=== PATIENT | male | born 1970 | race Caucasian/White ===

== ENCOUNTER → 2018-02-12 | Outpatient (CLI) | payer BC ==
[2018-02-12 16:34] LABS: BASO % 0.3 %; BASO ABS # 0.03 K/uL (0-0.2); EOS % 1.8 %; EOS ABS # 0.18 K/uL (0-0.5); HEMATOCRIT 45.8 % (42-52); IG# 0.02 K/uL (0.00-0.02); LYMPH % 19.7 %; LYMPH ABS # 1.96 K/uL (1.2-3.4); MEAN CELL VOLUME 86.3 fL (80-100); MEAN CORPUSCULAR HEMOGLOBIN 30.1 pg (25-34); MEAN CORPUSCULAR HGB CONC 34.9 g/dl (32-36); MEAN PLATELET VOLUME 11.3 fL (7.4-10.4); MONO % 7.6 %; MONO ABS # 0.76 K/uL (0.11-0.59); NEUT % 70.4 %; NEUT ABS # 6.99 K/uL (1.4-6.5); PLATELET COUNT 227 K/uL (130-400); RED CELL DISTRIBUTION WIDTH CV 12.7 % (11.5-14.5); RED CELL DISTRIBUTION WIDTH SD 40.2 fL (36.4-46.3); WHITE BLOOD COUNT 9.94 K/uL (4.8-10.8)
[2018-02-12 16:48] LABS: ALBUMIN 4.2 gm/dl (3.4-5.0); ALT/SGPT 45 U/L (12-78); AST/SGOT 25 U/L (15-37); BLOOD UREA NITROGEN 18 mg/dl (7-18); CALCIUM 9.4 mg/dl (8.5-10.1); CARBON DIOXIDE 29 mmol/L (21-32); CHOLESTEROL 236 mg/dl (0-200); CREATININE 1.15 mg/dl (0.60-1.40); GLUCOSE 100 mg/dl (70-99); POTASSIUM 4.5 mmol/L (3.5-5.1); SODIUM 134 mmol/L (136-145)
[2018-02-12 16:55] LABS: ALKALINE PHOSPHATASE 87 U/L (45-117); LDL CHOLESTEROL CALCULATED 174 mg/dl; TOTAL PROTEIN 8.4 gm/dl (6.4-8.2)
== END | disposition home or self-care (01) ==
LOC: C.LABBFT 14:43
PROVIDERS: ATTEND Physician Assistant Medical
DX: I10 Essential (primary) hypertension (principal)

== ENCOUNTER → 2018-02-20 | Outpatient (CLI) | payer BC ==
[2018-02-20 16:36] LABS: ALBUMIN 4.2 gm/dl (3.4-5.0); ALT/SGPT 45 U/L (12-78); BLOOD UREA NITROGEN 19 mg/dl (7-18); CALCIUM 9.9 mg/dl (8.5-10.1); CARBON DIOXIDE 25 mmol/L (21-32); CREATININE 1.22 mg/dl (0.60-1.40); GLUCOSE 91 mg/dl (70-99); POTASSIUM 4.4 mmol/L (3.5-5.1); SODIUM 138 mmol/L (136-145)
[2018-02-20 16:39] LABS: ALKALINE PHOSPHATASE 83 U/L (45-117); AST/SGOT 24 U/L (15-37)
[2018-02-21 07:41] LABS: HEMOGLOBIN A1C 6.3 % (4.5-5.6)
== END | disposition home or self-care (01) ==
LOC: C.LABBFT 11:36
PROVIDERS: ATTEND Internal Medicine
DX: I10 Essential (primary) hypertension (principal)

== ENCOUNTER 2024-05-20 15:48 | Inpatient (IN) ==
[2024-05-20 16:54] LABS: Basophils # (auto) 0.06 K/uL (0.00-0.20); Basophils % (auto) 0.6 %; Eosinophils # (auto) 0.25 K/uL (0.00-0.50); Eosinophils % (auto) 2.5 %; Hematocrit (blood only) 36.6 % (42.0-52.0); Hemoglobin 11.9 g/dl (14.0-18.0); Immature Granulocytes # (auto) 0.03 K/uL (0.01-0.20); Immature Granulocytes % (auto) 0.3 %; Lymphocytes # (auto) 2.69 K/uL (1.20-3.40); Lymphocytes % (auto) 27.1 %; Mean Corpuscular Hemoglobin 28.8 pg (25.0-34.0); Mean Corpuscular Hgb Conc 32.5 g/dL (32.0-36.0); Mean Corpuscular Volume 88.6 fL (80.0-100.0); Mean Platelet Volume 10.9 fL (9.4-12.4); Monocytes # (auto) 0.76 K/uL (0.11-0.59); Monocytes % (auto) 7.7 %; Neutrophils # (auto) 6.13 K/uL (1.40-6.50); Neutrophils % (auto) 61.8 %; Platelet Count 232 K/uL (130-400); RDW Coefficient of Variation 12.6 % (11.5-14.5); RDW Standard Deviation 40.6 fL (36.4-46.3); Red Blood Count 4.13 M/uL (4.70-6.10); White Blood Count 9.92 K/ul (4.8-10.8)
[2024-05-20 17:10] LABS: Alanine Aminotransferase 20 U/L (7-52); Albumin Globulin Ratio 1.6 (0.9-2); Albumin Level 4.7 gm/dl (3.4-5.0); Alkaline Phosphatase 70 U/L (34-104); Anion Gap 9 (3-11); Aspartate Aminotransferase 16 U/L (13-39); BUN Creatinine Ratio 20.5 (10-20); Bilirubin,Total 0.8 mg/dl (0.2-1.0); Blood Urea Nitrogen 59 mg/dl (6-23); Carbon Dioxide 22 mmol/L (21-32); Chloride 109 mmol/L (98-107); Creatinine Clr Calc Pharmacy 37.8 ml/min; Est GFR (African American) 27.2 ml/min; Est GFR (Non-African American) 23.5 ml/min; Globulin 2.9 gm/dl (2.5-4.0); Glucose 91 mg/dl (70-99(Fasting)); Potassium 5.7 mmol/L (3.5-5.1); Sodium 140 mmol/L (136-145); Total Protein 7.6 gm/dl (6.0-8.3)
[2024-05-20 17:22] LABS: Partial Thromboplastin Time 26 Seconds (21-31); Prothrombin Time 10.9 Seconds (9.0-12.0)
--- NOTE | 2024-05-20 17:28 | XRay Report ---
XR chest 1V not portable HISTORY: Abnormal laboratory values. COMPARISON: None. FINDINGS: The lungs are clear. Cardiac silhouette is normal in size. No pleural effusions. No pneumot horax. IMPRESSION: No acute process. ACT 112: Negative or not required by law. Electronically signed by: Rogelio Hoang M.D. 05/20/2024 5:27 PM
[2024-05-20 17:29] LABS: Troponin I High Sensitivity < 2.3 pg/ml (0-20)
[2024-05-20] MEDS: LACTATED RINGER'S 1,000 ML IV STA (18:03)
[2024-05-20 18:17] LABS: Appearance Urine Clear (Clear); Bilirubin Urine Negative (Negative); Blood Urine Negative (Negative); Color Urine Yellow; Glucose Urine UA Negative (Negative); Ketones Urine Trace (Negative); Leukocyte Esterase Urine Negative (Negative); Nitrite Urine Negative (Negative); Protein Urine Negative (Negative); Specific Gravity Urine 1.021 (1.000-1.030); Urobilinogen Urine Negative (Negative)
--- NOTE | 2024-05-20 18:35 | CT Scan Report ---
ABDOMEN AND PELVIS CT WITHOUT CONTRAST CT DOSE: 1548.51 mGy.cm HISTORY: acute renal failure TECHNIQUE: Multiaxial CT images of the abdomen and pelvis were performed without contrast. A dose lo wering technique was utilized adhering to the principles of ALARA. COMPARISON STUDY: None. FINDINGS: There is a 3 mm nodule within the right lower lobe on image 16. There is a punctate calcifi ed granuloma within the right middle lobe. No pneumoperitoneum. No pneumatosis. No acute fractures. T he unenhanced liver, gallbladder, pancreas, spleen, and adrenal glands are unremarkable. A few promin ent periportal lymph nodes measuring up to 17 mm. Normal caliber abdominal aorta. No pelvic lymphaden opathy or pelvic free fluid. A few bilateral renal hypodense lesions with the largest in the left fransisca suring 3.9 cm. These are incompletely characterized on this noncontrast study but statistically repre sent cysts. There is a 3 mm stone within the left kidney. No right renal calculi. No ureteral calculi . No hydronephrosis. Normal bladder. Suboptimal evaluation for bowel pathology due to the lack of int ravenous and oral contrast. However, there is no definite bowel wall thickening or obstruction. Irina l appendix. A few sigmoid diverticula. No evidence for acute diverticulitis. Minimal bilateral perine phric edema. This is likely chronic. IMPRESSION: 1. No bowel wall thickening or obstruction. 2. Normal appendix. 3. Left-sided nephrolithiasis. No ureteral stones. No hydronephrosis. 4. A few prominent periportal lymph nodes. These are of uncertain clinical significance. 5. A 3 mm indeterminate pulmonary nodule within the right lower lobe. Please refer to below summary of Fleischner criteria recommendations for follow-up of incidental CT n odules (Ashley Isaac, Guidelines for management of small pulmonary nodules detected on CT scans: A sta tement from the Fleischner Society, Radiology 237: [phone].) SOLID NODULES Solitary nodule size: <6 mm * Low risk patients: no follow-up needed * high risk patients: optional CT at 12 months Solitary nodule size: 6-8 mm * Low risk patients: follow-up at 6-12 months, then consider further follow-up at 18-24 months * high risk patients: initial follow-up CT at 6-12 months and then at 18-24 months if no change Solitary nodule size: >8 mm * either low or high risk patients - consider follow-up CT at 3 months, and/or CT-PET, and/or biopsy Multiple nodules size: <6 mm * Low risk patients: no routine follow-up * high risk patients: optional CT at 12 months Multiple nodules size: 6-8 mm * Low risk patients: follow-up at 3-6 months, then consider further follow-up at 18-24 months * high risk patients: follow-up at 3-6 months, then at 18-24 months if no change Multiple nodules size: >8 mm * Low risk patients: follow-up at 3-6 months, then consider further follow-up at 18-24 months * high risk patients: follow-up at 3-6 months, then at 18-24 months if no change Note: newly detected indeterminate nodule in persons 35 years of age or older. * Low risk patients: minimal or absent history of smoking and/or other known risk factors * high risk patients: history of smoking or of other known risk factors (e.g. first degree relative with lung cancer, or exposure to asbestos, radon, uranium) * if a nodule up to 8 mm is partly solid or is ground glass further follow-up is required after 24 m onths to exclude possible slow growing adenocarcinoma (EDEN) SUBSOLID NODULES Solitary pure ground-glass nodule * nodule size <6 mm - no CT follow-up required * nodule size >=6 mm - follow-up CT at 6-12 months, then every 2 years until 5 years Solitary part-solid nodule * nodule size <6 mm - no CT follow-up required * nodule size >=6 mm - follow-up CT at 3-6 months. If unchanged, and solid component remains <6 mm, then annual follow-up for 5 years Multiple subsolid nodules * nodule size <6 mm - follow-up CT at 3-6 months, consider further follow-up at 2 and 4 years if sta ble * nodule size >=6 mm - follow-up CT at 3-6 months, subsequent management based on the most suspiciou s nodule(s) ACT 112: Negative or not required by law. Electronically signed by: Rogelio Hoang M.D. 05/20/2024 6:33 PM
--- NOTE | 2024-05-20 18:52 | Emergency Department Note ---
Impression & Plan Acute renal failure, Hyperkalemia, Type 2 diabetes mellitus with peripheral neuropathy ED Provider Note NAME: JAVON PAGE AGE: 54 SEX: M : 1970 ARRIVES VIA: Walk-In INFORMANT: Patient ED PROVIDER(S): Yefri Kumari MD CHIEF COMPLAINT: abnormal labs, referred. PLAN: Disposition: Admit MEDICAL DECISION MAKING: The patient is a 54-year-old gentleman with a past medical history of hypertension, hyperlipidemia, type 2 diabetes who presents to the emergency department via walk-in accompanied by his , referred by his primary care doctor for evaluation of outpatient blood work yesterday which demonstrated acute renal failure with creatinine of 3.7 and potassium of 5.8. He reports he was surprised because he denies having any symptoms and has felt in his normal state of health. Patient admits that he has lost 30-40 pounds since starting on Ozempic but admits he may not be hydrating sufficiently particularly given he is outside frequently. He denies cough, congestion, chest pain, shortness of breath, GI or symptoms. Of note, the patient did arrive to emergency department during time of high volume, acuity and prolonged emergency department waiting times. Critical pathways initiated from triage. EKG without overt acute ischemia. CXR negative for acute cardiopulmonary process per my personal preliminary review/interpretation. WBC and platelets within normal limits. H/H 11.9/36.6, decreased from February of this year nonspecific. Chemistry without metabolic acidosis. Creatinine is improved from yesterday's outpatient test at 2.8 improved from 3.7. Potassium is 5.7. No EKG changes. LFTs unremarkable. High-sensitivity troponin is undetectable. UA without evidence of infection. CT abdomen pelvis without contrast was performed and was negative for acute abnormalities. Note is made of a few prominent periportal lymph nodes which are of unknown certain clinical significance. A 3 mm indeterminate pulmonary nodule is described in the right lower lobe. Treatment initiated with IV fluid hydration with lactated ringer's given chloride of 109 and sodium 140. Findings reviewed the patient with patient. While initially resistant to being admitted ultimately did agree with plan for admission for further evaluation. Case was discussed with Zay Persaud, [facility], with Dr. Bustos, [facility] hospitalist who will evaluate the patient for admission. Further management per admitting team. Triage Nursing notes reviewed and agree them. Prior/external medical records reviewed Vital Signs: reviewed Differential diagnosis: Infection, dehydration, metabolic abnormality, hypo/hyperglycemia, electrolyte disturbance, anemia, hypoxia, cardiac sources, intracerebral event, toxicologic, neurologic, as well as other pathologies. ER treatment provided: See below. Diagnostics interpreted by me: ECG: Normal sinus rhythm, 74 bpm, no ectopy, no overt ST elevation or depression, no hyperacute T waves, QTc 364, QRS 82. Cardiac Monitoring: An order for continuous cardiac monitoring was placed and demonstrated Normal sinus rhythm, 74 bpm, no ectopy. Laboratory studies: See below Imaging studies: See below Consultation(s): Zay Persaud, [facility], with Dr. Bustos, [facility] hospitalist HPI: The patient is a 54-year-old gentleman with a past medical history of hypertension, hyperlipidemia, type 2 diabetes who presents to the emergency department via walk-in accompanied by his , referred by his primary care doctor for evaluation of outpatient blood work yesterday which demonstrated acute renal failure with creatinine of 3.7 and potassium of 5.8. He reports he was surprised because he denies having any symptoms and has felt in his normal state of health. Patient admits that he has lost 30-40 pounds since starting on Ozempic but admits he may not be hydrating sufficiently particularly given he is outside frequently. He denies cough, congestion, chest pain, shortness of breath, GI or symptoms. ROS: See above HPI for pertinent positives & negatives. A total of 10 systems reviewed and were otherwise negative. VITALS:See Below PHYSICAL EXAMINATION: GENERAL: Awake, alert, in no distress, BMI 35.9. HENT: Normocephalic, atraumatic. Oropharynx with dry mucous membranes and otherwise unremarkable. EYES: Normal conjunctiva. Sclera non-icteric. NECK: Supple. No nuchal rigidity. FROM. No JVD. RESPIRATORY: Clear to auscultation. CARDIAC: Regular rate, normal rhythm. Extremities warm and well perfused. Pulses equal. ABDOMEN: Soft, non-distended. No tenderness to palpation. No rebound or guarding. No masses. MUSCULOSKELETAL: Chest examination reveals no tenderness. The back is symmetrical on inspection without obvious abnormality. There is no CVA tenderness to palpation. No joint edema. LOWER EXTREMITIES: Calves are equal size bilaterally and non-tender. No edema. No discoloration. NEURO: Normal sensorium. No sensory or motor deficits noted. SKIN: No rash or jaundice noted. Yefri Kumari MD Past Med/Surg History Problem List (Updated 05/21/24 @ 01:33 by Yefri Kumari MD) Hyperkalemia (Acute) Acute renal failure (Acute) Type 2 diabetes mellitus with peripheral neuropathy (Acute) Dyslipidemia (Chronic) Hypertension (Chronic) Encounter for pre-operative examination Anemia Medical History Hypertension Hyperlipidemia Impaired fasting glucose Surgical History No history of previous surgery Family History Family/Other Coronary heart disease Aunt Diabetes Other No family history of adverse response to anesthesia Denies family history of Ovarian cancer Prostate cancer Breast cancer Colorectal cancer Social History Smoking Status: Never smoker Second Hand Exposure: No; Do You Dip or Chew Tobacco: No; Hx Alcohol Use: Yes Alcohol type: hard liquor Hx Substance Use: No Preferred Language: Bangladeshi Communication Ability: Effective Cuff Slitter Required: No Beliefs That Will Affect Care: None marital status: Current Living Situation: Spouse current occupational status: employed Other Information That Helps Us Care for You: No Feels Safe at Home: Yes Safety Concerns: Feels Safe At This Time Diet: regular caffeine: Yes Dental Care, Regularly: No Physical Activity Frequency: Other Physical Activity Frequency Comment: Work Seatbelt Use: sometimes Sunscreen Use: No Assistive Devices: None Allergies Allergies Allergy/AdvReac Type Severity Reaction Status Date / Time No Known Allergies Allergy Verified 07/21/23 09:58 Home Meds Home Medications Medication Instructions Recorded Confirmed famotidine 10 mg/mL intravenous mg HS PRN Abdominal Discomfort 05/20/24 solution Previous Rx's Medication Instructions Recorded blood sugar diagnostic (Silent PowerTouch #50 ea 01/26/20 Verio test strips) blood-glucose meter (Silent PowerTouch #1 ea 01/26/20 Verio Meter) lancets 30 gauge (Silent PowerTouch Delica #50 ea 01/26/20 Lancets) lisinopril 20 mg tablet 20 mg PO DAILY #90 tabs 05/12/23 atorvastatin 20 mg tablet 20 mg PO HS #90 tabs 06/06/23 metformin 500 mg tablet,extended 1,000 mg (2 x 500 mg) PO BID #360 03/16/24 release 24 hr tabs semaglutide 1 mg/dose (4 mg/3 mL) 1 mg (0.75 mL) subcut Q7D #3 mL 05/03/24 subcutaneous pen injector (Ozempic) Results & Data (ED) Vital Signs Vital Signs - 24 hr 05/20/24 15:56 05/20/24 17:54 05/20/24 18:08 Temperature 36.6 C Temperature Source Skin Pulse Rate 85 72 Pulse Rate [Apical] 73 Respiratory Rate 18 18 Respiratory Effort / Characteristics Non-Labored Spontaneous Respiratory Depth Normal Respiratory Pattern Blood Pressure 129/84 Blood Pressure [Right Arm] 121/84 Blood Pressure Mean 99 Blood Pressure Mean [Right Arm] 96 Blood Pressure Position [Right Arm] Lying Pulse Oximetry 98 99 Oxygen Delivery Method Room Air Room Air Sepsis Recent Fever Within 48 Hours No Sepsis New/Unexplained Change in Mental Status No Sepsis Action Taken by Nursing No Action Required 05/20/24 19:00 Temperature Temperature Source Pulse Rate Pulse Rate [Apical] 69 Respiratory Rate 16 Respiratory Effort / Characteristics Non-Labored Spontaneous Respiratory Depth Normal Respiratory Pattern Regular Blood Pressure Blood Pressure [Right Arm] 113/82 Blood Pressure Mean Blood Pressure Mean [Right Arm] 92 Blood Pressure Position [Right Arm] Pulse Oximetry 99 Oxygen Delivery Method Room Air Sepsis Recent Fever Within 48 Hours Sepsis New/Unexplained Change in Mental Status Sepsis Action Taken by Nursing Laboratory Data Attestation: I reviewed the patient's lab results. 05/20/24 16:26 05/20/24 20:03 Lab Results 05/20/24 05/20/24 Range/Units 16:26 17:41 WBC 9.92 (4.8-10.8) K/ul RBC 4.13 L (4.70-6.10) M/uL Hgb 11.9 L (14.0-18.0) g/dl Hct 36.6 L (42.0-52.0) % MCV 88.6 (80.0-100.0) fL MCH 28.8 (25.0-34.0) pg MCHC 32.5 (32.0-36.0) g/dL RDW Std Deviation 40.6 (36.4-46.3) fL RDW Coeff of Mabel 12.6 (11.5-14.5) % Plt Count 232 (130-400) K/uL MPV 10.9 (9.4-12.4) fL Immature Gran % (Auto) 0.3 % Neut % (Auto) 61.8 % Lymph % (Auto) 27.1 % Garland % (Auto) 7.7 % Eos % (Auto) 2.5 % Baso % (Auto) 0.6 % Neut # (Auto) 6.13 (1.40-6.50) K/uL Lymph # (Auto) 2.69 (1.20-3.40) K/uL Garland # (Auto) 0.76 H (0.11-0.59) K/uL Eos # (Auto) 0.25 (0.00-0.50) K/uL Baso # (Auto) 0.06 (0.00-0.20) K/uL Immature Gran # (Auto) 0.03 (0.01-0.20) K/uL PT 10.9 (9.0-12.0) Seconds INR 1.0 (0.9-1.1) APTT 26 (21-31) Seconds PTT Ratio 1.0 Sodium 140 (136-145) mmol/L Potassium 5.7 H (3.5-5.1) mmol/L Chloride 109 H (98-107) mmol/L Carbon Dioxide 22 (21-32) mmol/L Anion Gap 9 (3-11) BUN 59 H (6-23) mg/dl Creatinine 2.88 H D (0.6-1.4) mg/dl Est Cr Clr Drug Dosing 37.8 ml/min Est GFR ( Amer) 27.2 ml/min Est GFR (Non-Af Amer) 23.5 ml/min BUN/Creatinine Ratio 20.5 H (10-20) Glucose 91 (70-99(Fasting)) mg/dl Calcium 10.0 (8.6-10.3) mg/dl Total Bilirubin 0.8 (0.2-1.0) mg/dl AST 16 (13-39) U/L ALT 20 (7-52) U/L Alkaline Phosphatase 70 (34-104) U/L Troponin I High Sens < 2.3 (0-20) pg/ml Total Protein 7.6 (6.0-8.3) gm/dl Albumin 4.7 (3.4-5.0) gm/dl Globulin 2.9 (2.5-4.0) gm/dl Albumin/Globulin Ratio 1.6 (0.9-2) Urine Color Yellow Urine Appearance Clear (Clear) Urine pH 5.0 (4.5-7.5) Ur Specific [place] 1.021 (1.000-1.030) Urine Protein Negative (Negative) Urine Glucose (UA) Negative (Negative) Urine Ketones Trace H (Negative) Urine Blood Negative (Negative) Urine Nitrite Negative (Negative) Urine Bilirubin Negative (Negative) Urine Urobilinogen Negative (Negative) Ur Leukocyte Esterase Negative (Negative) Administered Medications Lactated Ringer's (Lr) 1,000 mls @ 125 mls/hr IV .Q8H STA Stop: 05/21/24 01:42 Last Admin: 05/20/24 18:03 Dose: 125 mls/hr Documented By: CC Insulin Aspart (Insulin Aspart Per Unit Charge) 0 units SC ACHS FLY Stop: 06/19/24 20:59 Last Admin: 05/20/24 21:35 Dose: Not Given Documented By: LKD Discontinued Medications Lactated Ringer's (Lr) 1,000 mls @ 999 mls/hr IV .Q1H1M ONE Stop: 05/21/24 00:25 Last Infusion: 05/21/24 00:42 Dose: Infused Documented By: Admin: 05/20/24 23:41 Dose: 999 mls/hr Documented By: MISHEL Imaging Data Radiologist's Impression: Chest X-Ray 05/20/24 15:59 XR chest 1V not portable HISTORY: Abnormal laboratory values. COMPARISON: None. FINDINGS: The lungs are clear. Cardiac silhouette is normal in size. No pleural effusions. No pneumothorax. IMPRESSION: No acute process. ACT 112: Negative or not required by law. Electronically signed by: Rogelio Hoang M.D. 05/20/2024 5:27 PM Abdomen/Pelvis CT 05/20/24 16:[address] WITHOUT CONTRAST CT DOSE: 1548.51 mGy.cm HISTORY: acute renal failure TECHNIQUE: Multiaxial CT images of the abdomen and pelvis were performed without contrast. A dose lowering technique was utilized adhering to the principles of ALARA. COMPARISON STUDY: None. FINDINGS: There is a 3 mm nodule within the right lower lobe on image 16. There is a punctate calcified granuloma within the right middle lobe. No pneumoperitoneum. No pneumatosis. No acute fractures. The unenhanced liver, gallbladder, pancreas, spleen, and adrenal glands are unremarkable. A few prominent periportal lymph nodes measuring up to 17 mm. Normal caliber abdominal aorta. No pelvic lymphadenopathy or pelvic free fluid. A few bilateral renal hypodense lesions with the largest in the left measuring 3.9 cm. These are incompletely characterized on this noncontrast study but statistically represent cysts. There is a 3 mm stone within the left kidney. No right renal calculi. No ureteral calculi. No hydronephrosis. Normal bladder. Suboptimal evaluation for bowel pathology due to the lack of intravenous and oral contrast. However, there is no definite bowel wall thickening or obstruction. Normal appendix. A few sigmoid diverticula. No evidence for acute diverticulitis. Minimal bilateral perinephric edema. This is likely chronic. IMPRESSION: 1. No bowel wall thickening or obstruction. 2. Normal appendix. 3. Left-sided nephrolithiasis. No ureteral stones. No hydronephrosis. 4. A few prominent periportal lymph nodes. These are of uncertain clinical significance. 5. A 3 mm indeterminate pulmonary nodule within the right lower lobe. Please refer to below summary of Fleischner criteria recommendations for follow- up of incidental CT nodules (Ashley Isaac, Guidelines for management of small pulmonary nodules detected on CT scans: A statement from the Fleischner Society, Radiology 237: [phone].) SOLID NODULES Solitary nodule size: <6 mm * Low risk patients: no follow-up needed * high risk patients: optional CT at 12 months Solitary nodule size: 6-8 mm * Low risk patients: follow-up at 6-12 months, then consider further follow-up at 18-24 months * high risk patients: initial follow-up CT at 6-12 months and then at 18-24 months if no change Solitary nodule size: >8 mm * either low or high risk patients - consider follow-up CT at 3 months, and/or CT-PET, and/or biopsy Multiple nodules size: <6 mm * Low risk patients: no routine follow-up * high risk patients: optional CT at 12 months Multiple nodules size: 6-8 mm * Low risk patients: follow-up at 3-6 months, then consider further follow-up at 18-24 months * high risk patients: follow-up at 3-6 months, then at 18-24 months if no change Multiple nodules size: >8 mm * Low risk patients: follow-up at 3-6 months, then consider further follow-up at 18-24 months * high risk patients: follow-up at 3-6 months, then at 18-24 months if no change Note: newly detected indeterminate nodule in persons 35 years of age or older. * Low risk patients: minimal or absent history of smoking and/or other known risk factors * high risk patients: history of smoking or of other known risk factors (e.g. first degree relative with lung cancer, or exposure to asbestos, radon, uranium) * if a nodule up to 8 mm is partly solid or is ground glass further follow-up is required after 24 months to exclude possible slow growing adenocarcinoma (EDEN) SUBSOLID NODULES Solitary pure ground-glass nodule * nodule size <6 mm - no CT follow-up required * nodule size >=6 mm - follow-up CT at 6-12 months, then every 2 years until 5 years Solitary part-solid nodule * nodule size <6 mm - no CT follow-up required * nodule size >=6 mm - follow-up CT at 3-6 months. If unchanged, and solid component remains <6 mm, then annual follow-up for 5 years Multiple subsolid nodules * nodule size <6 mm - follow-up CT at 3-6 months, consider further follow-up at 2 and 4 years if stable * nodule size >=6 mm - follow-up CT at 3-6 months, subsequent management based on the most suspicious nodule(s) ACT 112: Negative or not required by law. Electronically signed by: Rogelio Hoang M.D. 05/20/2024 6:33 PM Discharge Plan Visit Data Chief Complaint: Abnormal Labs/Diagnostic Testing Stated Complaint: DOC, ABN LABS/BLOOD WORK ED Provider: Yefri Kumari Discharge Problem: Acute renal failure, Hyperkalemia, Type 2 diabetes mellitus with peripheral neuropathy Patient Disposition: Admitted As Inpatient Discharge Instructions Interventions: ED Discharge Assessment Last Done: 05/20/24 21:41 Discharge Problem: Acute renal failure Qualifiers: Acute renal failure type: unspecified Qualified Code(s): N17.9 - Acute kidney failure, unspecified
--- NOTE | 2024-05-20 19:10 | History & Physical Report ---
Date of Service May 20, 2024 Assessment & Plan (1) Acute renal failure: Plan: Admit to med/tele Currently stable nontoxic-appearing Presented to the ED at the recommendation of his PCP patient labs showed patient to be in renal failure with hyperkalemia Creatinine on 05/19/2024 was 3.72, potassium was 5.8 Creatinine today improving to 2.88, potassium on arrival was 5.7 No acute ECG changes Renal failure is likely a combination of Ozempic use, dehydration, and continued use of lisinopril and metformin Renal function and hyperkalemia have already been improving, suspect they will continue to improve with IV fluids overnight Will obtain repeat potassium level 4 hours after initial labs obtained in the ED Continue to hold lisinopril, Ozempic, and metformin Bilateral SCDs for DVT prophylaxis DM type II and low potassium diet A.m. CBC, BMP, mag, PT/INR (2) Hyperkalemia: Plan: See acute renal failure plan (3) Hypertension: Plan: Currently stable Continue to hold lisinopril for now If he is hypertensive during admission will have to start him on potassium sparing antihypertensive at the time of discharge (4) Type 2 diabetes mellitus with peripheral neuropathy: Plan: Hold metformin and Ozempic Ozempic should be discontinued at the time of discharge, will need to base ongoing metformin based on renal function at the time of dischargemonitor BSG ACHS, goal is [id number] Start CF of 50 and CR of 15 ACHS for now Holding basal insulin to avoid hypoglycemia (5) Dyslipidemia: Plan: Continue statin Plan The patient was discussed with Dr. Bustos at the time of admission History of Present Illness Chief Complaint: Acute renal failure and hyperkalemia on outpatient labs Primary Care Provider: DO Francisco Javier aMrtin is a 54-year-old male with a past medical history significant for morbid obesity, diabetes mellitus type 2, hypertension, and hyperlipidemia who presented to the [facility] ED on 05/20/2024 at the r ecommendation of his PCP due to routine outpatient labs obtained on 05/19/2024 showing acute renal failure and hyperkalemia. He remained stable in the ED. Creatinine on 05/19/2024 was noted to be 3.72 down to 2.88 today (baseline is near 1.1), potassium on 05/19 was 5.8 down to 5.7 today. UA showed trace ketones otherwise labs are unremarkable. Chest x-ray was read as negative for acute findings. CT of the abdomen pelvis without contrast was read as negative for bowel wall thickening or obstruction. Normal appendix. Left-sided nephrolithiasis, no ureteral stones, no hydronephrosis. A few prominent periportal lymph nodes. These are of uncertain clinical significance. 3 mm indeterminate pulmonary nodule within the right lower lobe. Prior to admission the patient was started on LR at 125 mL/h due to dehydration. Patient was sitting in bed in no acute distress at time of exam with his bedside, history is obtained from both. They confirm that since being on Ozempic he has lost approximately 40 pounds. 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 When asked, he states that he usually takes 2 tabs of ibuprofen nightly for pain. Denies tobacco use and denies frequent alcohol use. States he is felt his normal self despite his recent abnormal labs. Denies recent fever, chills, chest pain, breath, abdominal pain, nausea/vomiting, dysuria/hematuria, diarrhea, melena, and lower extremity swelling. He is willing to stay overnight for ongoing IV fluids and monitoring of his electrolytes. EKG obtained from the patient's physical chart shows normal sinus rhythm without significant ST segment or T wave changes. Please refer to Dr. Bustos's attestation for any changes to treatment plan Allergies Allergy/AdvReac Type Severity Reaction Status Date / Time No Known Allergies Allergy Verified 07/21/23 09:58 Home Medications Medication Instructions Recorded Confirmed Type blood sugar diagnostic ([employer]ics ModularTouch #50 ea 01/26/20 05/20/24 Rx Verio test strips) blood-glucose meter ([employer] ModularTouch #1 ea 01/26/20 05/20/24 Rx Verio Meter) lancets 30 gauge ([employer] ModularTouch Delica #50 ea 01/26/20 05/20/24 Rx Lancets) lisinopril 20 mg tablet 20 mg PO DAILY #90 tabs 05/12/23 05/20/24 Rx atorvastatin 20 mg tablet 20 mg PO HS #90 tabs 06/06/23 05/20/24 Rx metformin 500 mg tablet,extended 1,000 mg (2 x 500 mg) PO BID #360 03/16/24 05/20/24 Rx release 24 hr tabs semaglutide 1 mg/dose (4 mg/3 mL) 1 mg (0.75 mL) subcut Q7D #3 mL 05/03/24 05/20/24 Rx subcutaneous pen injector (Ozempic) famotidine 10 mg/mL intravenous mg HS PRN Abdominal Discomfort 05/20/24 History solution Past Med/Surg History Problem List (Updated 05/21/24 @ 01:33 by Yefri Kumari MD) Hyperkalemia (Acute) Acute renal failure (Acute) Type 2 diabetes mellitus with peripheral neuropathy (Acute) Dyslipidemia (Chronic) Hypertension (Chronic) Encounter for pre-operative examination Anemia Medical History Hypertension Hyperlipidemia Impaired fasting glucose Surgical History No history of previous surgery Family History Family/Other Coronary heart disease Aunt Diabetes Other No family history of adverse response to anesthesia Denies family history of Ovarian cancer Prostate cancer Breast cancer Colorectal cancer Social History Smoking Status: Never smoker Second Hand Exposure: No; Do You Dip or Chew Tobacco: No; Hx Alcohol Use: Yes Alcohol type: hard liquor Hx Substance Use: No Preferred Language: Serbian Communication Ability: Effective 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 Beliefs That Will Affect Care: None marital status: Current Living Situation: Spouse current occupational status: employed Other Information That Helps Us Care for You: No Feels Safe at Home: Yes Safety Concerns: Feels Safe At This Time Diet: regular caffeine: Yes Dental Care, Regularly: No Physical Activity Frequency: Other Physical Activity Frequency Comment: Work Seatbelt Use: sometimes Sunscreen Use: No Assistive Devices: None Physical Exam Physical Exam: Physical Exam: General: In no acute distress, stated age, non-toxic appearing HEENT: Normocephalic, atraumatic, no scleral icterus, pupils around round, symmetrical, and reactive to light, dry mucus membranes, trachea midline, no thyromegaly Chest/Pulm: No respiratory distress, symmetrical chest expansion, clear breath sounds throughout Cardiac: RRR, no murmurs noted Abdomen: Negative for ascites and bruising, normoactive bowel sounds, soft, non-tender to palpation throughout Musculoskeletal: Symmetrical and without signs of acute trauma, upper and lower extremities with full ROM, no atrophy, spasticity, or flaccidity Extremities: Radial, dorsalis pedis, and posterior tibial pulses are intact and symmetrical, no edema noted in the BL LE's Skin: Warm, dry, no rashes , lesions, or scars noted Neuro: Alert and oriented to person, place, month, year, and president, no focal defects, no tremors noted Psych: No acute distress, calm and cooperative during the exam Results & Data Results & Data Vital Signs (Past 12 Hours) Vital Signs Temp Pulse Pulse Resp BP BP Pulse Ox 05/20/24 18:08 72 05/20/24 17:54 73 18 121/84 99 05/20/24 15:56 36.6 C 85 18 129/84 98 O2 Del Method 05/20/24 18:08 05/20/24 17:54 Room Air 05/20/24 15:56 Room Air Laboratory Results Abnormal lab results 05/20/24 05/20/24 Range/Units 16:26 17:41 RBC 4.13 L (4.70-6.10) M/uL Hgb 11.9 L (14.0-18.0) g/dl Hct 36.6 L (42.0-52.0) % [place] # (Auto) 0.76 H (0.11-0.59) K/uL Potassium 5.7 H (3.5-5.1) mmol/L Chloride 109 H (98-107) mmol/L BUN 59 H (6-23) mg/dl Creatinine 2.88 H D (0.6-1.4) mg/dl BUN/Creatinine Ratio 20.5 H (10-20) Urine Ketones Trace H (Negative) Diagnostic Findings Chest X-Ray 05/20/24 15:59 XR chest 1V not portable HISTORY: Abnormal laboratory values. COMPARISON: None. FINDINGS: The lungs are clear. Cardiac silhouette is normal in size. No pleural effusions. No pneumothorax. IMPRESSION: No acute process. ACT 112: Negative or not required by law. Electronically signed by: Rogelio Hoang M.D. 05/20/2024 5:27 PM Abdomen/Pelvis CT 05/20/24 16:[address] WITHOUT CONTRAST CT DOSE: 1548.51 mGy.cm HISTORY: acute renal failure TECHNIQUE: Multiaxial CT images of the abdomen and pelvis were performed without contrast. A dose lowering technique was utilized adhering to the principles of ALARA. COMPARISON STUDY: None. FINDINGS: There is a 3 mm nodule within the right lower lobe on image 16. There is a punctate calcified granuloma within the right middle lobe. No pneumoperitoneum. No pneumatosis. No acute fractures. The unenhanced liver, gallbladder, pancreas, spleen, and adrenal glands are unremarkable. A few prominent periportal lymph nodes measuring up to 17 mm. Normal caliber abdominal aorta. No pelvic lymphadenopathy or pelvic free fluid. A few bilateral renal hypodense lesions with the largest in the left measuring 3.9 cm. These are incompletely characterized on this noncontrast study but statistically represent cysts. There is a 3 mm stone within the left kidney. No right renal calculi. No ureteral calculi. No hydronephrosis. Normal bladder. Suboptimal evaluation for bowel pathology due to the lack of intravenous and oral contrast. However, there is no definite bowel wall thickening or obstruction. Normal appendix. A few sigmoid diverticula. No evidence for acute diverticulitis. Minimal bilateral perinephric edema. This is likely chronic. IMPRESSION: 1. No bowel wall thickening or obstruction. 2. Normal appendix. 3. Left-sided nephrolithiasis. No ureteral stones. No hydronephrosis. 4. A few prominent periportal lymph nodes. These are of uncertain clinical significance. 5. A 3 mm indeterminate pulmonary nodule within the right lower lobe. Please refer to below summary of Fleischner criteria recommendations for follow- up of incidental CT nodules (Ashley Isaac, Guidelines for management of small pulmonary nodules detected on CT scans: A statement from the Fleischner Society, Radiology 237: [phone].) SOLID NODULES Solitary nodule size: <6 mm * Low risk patients: no follow-up needed * high risk patients: optional CT at 12 months Solitary nodule size: 6-8 mm * Low risk patients: follow-up at 6-12 months, then consider further follow-up at 18-24 months * high risk patients: initial follow-up CT at 6-12 months and then at 18-24 months if no change Solitary nodule size: >8 mm * either low or high risk patients - consider follow-up CT at 3 months, and/or CT-PET, and/or biopsy Multiple nodules size: <6 mm * Low risk patients: no routine follow-up * high risk patients: optional CT at 12 months Multiple nodules size: 6-8 mm * Low risk patients: follow-up at 3-6 months, then consider further follow-up at 18-24 months * high risk patients: follow-up at 3-6 months, then at 18-24 months if no change Multiple nodules size: >8 mm * Low risk patients: follow-up at 3-6 months, then consider further follow-up at 18-24 months * high risk patients: follow-up at 3-6 months, then at 18-24 months if no change Note: newly detected indeterminate nodule in persons 35 years of age or older. * Low risk patients: minimal or absent history of smoking and/or other known risk factors * high risk patients: history of smoking or of other known risk factors (e.g. first degree relative with lung cancer, or exposure to asbestos, radon, uranium) * if a nodule up to 8 mm is partly solid or is ground glass further follow-up is required after 24 months to exclude possible slow growing adenocarcinoma ([place]) SUBSOLID NODULES Solitary pure ground-glass nodule * nodule size <6 mm - no CT follow-up required * nodule size >=6 mm - follow-up CT at 6-12 months, then every 2 years until 5 years Solitary part-solid nodule * nodule size <6 mm - no CT follow-up required * nodule size >=6 mm - follow-up CT at 3-6 months. If unchanged, and solid component remains <6 mm, then annual follow-up for 5 years Multiple subsolid nodules * nodule size <6 mm - follow-up CT at 3-6 months, consider further follow-up at 2 and 4 years if stable * nodule size >=6 mm - follow-up CT at 3-6 months, subsequent management based on the most suspicious nodule(s) ACT 112: Negative or not required by law. Electronically signed by: Rogelio Hoang M.D. 05/20/2024 6:33 PM ECG Additional Comments: NSR, no acute ST segment or T-wave changes Code Status & VTE Plan Code Status Full code VTE Prophylaxis Plan VTE Prophylaxis will be ordered: Yes Supervising Physician Co-Signing Physician Notes Attending addendum: I have physically seen this patient, have supervised the GABRIELE's activities, and agree with the H&P unless as otherwise noted. Assessment and Plan: Acute kidney injury/hyperkalemia- Patient was referred to the ED due to abnormal laboratories for which she was asymptomatic Creatinine as outpatient on 05/19 was 3.72 Creatinine on admission in the ED this evening was 2.88 with a potassium of 5.7 Patient did undergo a 1 L normal saline bolus, with repeat potassium 5.0 and creatinine 2.46 Patient will continue with LR at 125 MLS per hour, and repeat laboratories every morning Likely etiology combination of lisinopril and semaglutide, both of which will be held. Intentional weight loss- Patient reports about a 40 pound weight loss since he has been on semaglutide If this medication is resumed, he will need to have laboratories performed regularly, and ensure that his water intake is adequate, which he reports was not likely optimal over the last several days Diabetes mellitus type 2 with peripheral neuropathy- Hold metformin PG Care Time/CCT Total # of Minutes Spent Total Time Spent with Patient: Total time spent is greater than 50% in coordination of care (as documented) at patient's floor/unit and/or counseling patient: Coding [place] [address] INT INP/OBS CARE 3/75MIN Patient Type Established Medical Decision Making High Complexity Diagnoses Acute renal failure N17.9 Hyperkalemia E87.5 Hypertension I10 Type 2 diabetes mellitus with peripheral neuropathy E11.42 Dyslipidemia E78.5
[2024-05-20] MEDS ORDERED: GLUCOSE 40% GEL 15 GM TUBE PO PRN (19:32)
[2024-05-20] MEDS ORDERED: GLUCAGON FOR INJ 1 MG VIAL SQ PRN (19:32)
[2024-05-20] MEDS ORDERED: CARBOHYDRATES FOR HYPOGLYCEMIA PO PRN (19:32)
[2024-05-20] MEDS ORDERED: GLUCOSE 10 TAB/TUBE PO PRN (19:32)
[2024-05-20] MEDS ORDERED: DEXTROSE 50% 50 ML SYRINGE IV PRN (19:32)
[2024-05-20] MEDS: INSULIN ASPART PER UNIT CHARGE SC SCH (21:35)
[2024-05-20] MEDS: LACTATED RINGER'S 1,000 ML IV ONE (23:41)
[2024-05-21 01:54] LABS: BUN Creatinine Ratio 20.7 (10-20); Calcium 9.5 mg/dl (8.6-10.3); Creatinine Clr Calc Pharmacy 44.1 ml/min; Est GFR (African American) 32.9 ml/min; Est GFR (Non-African American) 28.4 ml/min
[2024-05-21] MEDS: LACTATED RINGER'S 1,000 ML IV SCH (02:21)
[2024-05-21 07:48] LABS: Basophils # (auto) 0.07 K/uL (0.00-0.20); Basophils % (auto) 0.9 %; Eosinophils # (auto) 0.27 K/uL (0.00-0.50); Eosinophils % (auto) 3.6 %; Hematocrit (blood only) 34.3 % (42.0-52.0); Hemoglobin 11.3 g/dl (14.0-18.0); Immature Granulocytes # (auto) 0.02 K/uL (0.01-0.20); Immature Granulocytes % (auto) 0.3 %; Lymphocytes # (auto) 2.03 K/uL (1.20-3.40); Lymphocytes % (auto) 26.8 %; Mean Corpuscular Hemoglobin 29.6 pg (25.0-34.0); Mean Corpuscular Hgb Conc 32.9 g/dL (32.0-36.0); Mean Corpuscular Volume 89.8 fL (80.0-100.0); Mean Platelet Volume 10.8 fL (9.4-12.4); Monocytes # (auto) 0.66 K/uL (0.11-0.59); Monocytes % (auto) 8.7 %; Neutrophils # (auto) 4.52 K/uL (1.40-6.50); Neutrophils % (auto) 59.7 %; Platelet Count 211 K/uL (130-400); RDW Coefficient of Variation 12.7 % (11.5-14.5); RDW Standard Deviation 41.5 fL (36.4-46.3); Red Blood Count 3.82 M/uL (4.70-6.10); White Blood Count 7.57 K/ul (4.8-10.8)
[2024-05-21 08:07] LABS: BUN Creatinine Ratio 22.7 (10-20); Calcium 9.5 mg/dl (8.6-10.3); Creatinine Clr Calc Pharmacy 52.4 ml/min; Est GFR (African American) 40.6 ml/min; Magnesium 1.4 mg/dl (1.7-2.4); Potassium 5.4 mmol/L (3.5-5.1)
--- NOTE | 2024-05-21 12:43 | Electrocardiogram Report ---
Test Reason : Blood Pressure : / mmHG Vent. Rate : 074 BPM Atrial Rate : 074 BPM P-R Int : 156 ms QRS Dur : 082 ms QT Int : 328 ms P-R-T Axes : 043 052 056 degrees QTc Int : 364 ms Normal sinus rhythm Normal ECG No previous ECGs available Confirmed by Herb Delgado ([id number]) on 05/21/2024 12:43:31 PM Referred By: Caio Rodriguez Confirmed By:Eh Delgado
--- NOTE | 2024-05-21 23:49 | Hospitalist Progress Note ---
Date of Service May 21, 2024 Assessment & Plan (1) Acute renal failure: Plan: Admit to med/tele Currently stable nontoxic-appearing Presented to the ED at the recommendation of his PCP patient labs showed patient to be in renal failure with hyperkalemia Creatinine on 05/19/2024 was 3.72, potassium was 5.8 Creatinine today improving to 2.88, potassium on arrival was 5.7 No acute ECG changes Renal failure is likely a combination of Ozempic use, dehydration, and continued use of lisinopril and metformin Renal function and hyperkalemia have already been improving, suspect they will continue to improve with IV fluids overnight Will obtain repeat potassium level 4 hours after initial labs obtained in the ED Continue to hold lisinopril, Ozempic, and metformin Bilateral SCDs for DVT prophylaxis Creatinine is improving. WIll give another 2 liters of fluid and will recheck his levels in the AM> (2) Hyperkalemia: Plan: See acute renal failure plan (3) Hypertension: Plan: Currently stable Continue to hold lisinopril for now If he is hypertensive during admission will have to start him on potassium sparing antihypertensive at the time of discharge (4) Type 2 diabetes mellitus with peripheral neuropathy: Plan: Hold metformin and Ozempic Ozempic should be discontinued at the time of discharge, will need to base ongoing metformin based on renal function at the time of dischargemonitor BSG ACHS, goal is [id number] Start CF of 50 and CR of 15 ACHS for now Holding basal insulin to avoid hypoglycemia (5) Dyslipidemia: Plan: Continue statin Admission and Anticipated Discharge Date Admission Date: May 20, 2024 Subjective Patient reports doing well. He has no new complaints. Review of Systems Review of Systems: All systems reviewed & are unremarkable except as noted in HPI & below Physical Exam Physical Exam: General: In no acute distress, stated age, non-toxic appearing HEENT: Normocephalic, atraumatic Chest/Pulm: No respiratory distress, symmetrical chest expansion, clear breath sounds throughout Cardiac: RRR, no murmurs noted Abdomen: normoactive bowel sounds, soft, non-tender to palpation throughout Musculoskeletal: Symmetrical and without signs of acute trauma, upper and lower extremities with full ROM, no atrophy, spasticity, or flaccidity Extremities: Radial, dorsalis pedis, and posterior tibial pulses are intact and symmetrical, no edema noted in the BL LE's Psych: No acute distress, calm and cooperative during the exam Results & Data Results & Data Vital Signs (Past 12 Hours) Vital Signs Temp Pulse Pulse Resp BP Pulse Ox O2 Del Method 05/21/24 23:28 36.4 C L 61 18 133/84 98 Room Air 05/21/24 22:59 62 05/21/24 19:25 36.9 C 63 16 130/82 98 Room Air 05/21/24 14:35 65 05/21/24 14:30 36.8 C 67 16 146/99 H 99 Room Air PG Care Time/CCT Total # of Minutes Spent Total Time Spent with Patient: Total time spent is greater than 50% in coordination of care (as documented) at patient's floor/unit and/or counseling patient: Coding Level of Care Code 78542 SUB INP/OBS CARE 2/35MIN Diagnoses Acute renal failure N17.9 Acute renal failure type: unspecified Hyperkalemia E87.5 Hypertension I10 Type 2 diabetes mellitus with peripheral neuropathy E11.42 Dyslipidemia E78.5 (1) Acute renal failure Acute renal failure type: unspecified Qualified Code(s): N17.9 - Acute kidney failure, unspecified
[2024-05-22 02:13] LABS: BUN Creatinine Ratio 19.5 (10-20); Calcium 9.4 mg/dl (8.6-10.3); Creatinine Clr Calc Pharmacy 66.2 ml/min; Est GFR (African American) 53.8 ml/min; Est GFR (Non-African American) 46.4 ml/min; Magnesium 1.2 mg/dl (1.7-2.4); Potassium 4.8 mmol/L (3.5-5.1)
--- NOTE | 2024-05-22 02:16 | Communication Note ---
Date of Service: May 22, 2024 Notified by nursing ~1:15AM that pt now having frequent junctional beats on monitor- asymptomatic. EKG obtained showing NSR. Pt admitted d/t acute renal casandra lure with hyperkalemia. Labs were obtained which showed improving potassium to 4.8 (down from 5.4) and Cr 1.64 (down from 2.07). Mg still low at 1.2 (last 1.4). 2g IV mag ordered. Will delay morning labs to allow for mag infusions and then recheck. Resident Activity Tracking Resident Involvement: Resident Care Provided Care Provided: Adult Hospital Medicine
[2024-05-22] MEDS: MAGNESIUM SULFATE / D5W 1 GM/100 ML BAG IV SCH (02:44)
[2024-05-22 07:20] LABS: Hemoglobin 11.6 g/dl (14.0-18.0); Mean Corpuscular Hemoglobin 29.1 pg (25.0-34.0); Mean Corpuscular Hgb Conc 33.1 g/dL (32.0-36.0); Mean Corpuscular Volume 87.7 fL (80.0-100.0); Mean Platelet Volume 10.8 fL (9.4-12.4); Platelet Count 215 K/uL (130-400); RDW Coefficient of Variation 12.4 % (11.5-14.5); RDW Standard Deviation 40.1 fL (36.4-46.3); Red Blood Count 3.99 M/uL (4.70-6.10); White Blood Count 8.22 K/ul (4.8-10.8)
[2024-05-22 07:55] LABS: BUN Creatinine Ratio 18.7 (10-20); Calcium 9.6 mg/dl (8.6-10.3); Creatinine Clr Calc Pharmacy 70.1 ml/min; Est GFR (African American) 57.6 ml/min; Est GFR (Non-African American) 49.7 ml/min; Potassium 4.9 mmol/L (3.5-5.1)
--- NOTE | 2024-05-22 10:43 | Discharge Summary ---
Date of Service May 22, 2024 Admission HPI Per Admitting Provider Francisco Javier is a 54-year-old male with a past medical history significant for morbid obesity, diabetes mellitus type 2, hypertension, and hyperlipidemia who presented to the [facility] ED on 05/20/2024 at the recommendation of his PCP due to routine outpatient labs obtained on 05/19/2024 showing acute renal failure and hyperkalemia. He remained stable in the ED. Creatinine on 05/19/2024 was noted to be 3.72 down to 2.88 today (baseline is near 1.1), potassium on 05/19 was 5.8 down to 5.7 today. UA showed trace ketones otherwise labs are unremarkable. Chest x-ray was read as negative for acute findings. CT of the abdomen pelvis without contrast was read as negative for bowel wall thickening or obstruction. Normal appendix. Left-sided nephrolithiasis, no ureteral stones, no hydronephrosis. A few prominent periportal lymph nodes. These are of uncertain clinical significance. 3 mm indeterminate pulmonary nodule within the right lower lobe. Prior to admission the patient was started on LR at 125 mL/h due to dehydration. Patient was sitting in bed in no acute distress at time of exam with his bedside, history is obtained from both. They confirm that since being on Ozempic he has lost approximately 40 pounds. 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 When asked, he states that he usually takes 2 tabs of ibuprofen nightly for pain. Denies tobacco use and denies frequent alcohol use. States he is felt his normal self despite his recent abnormal labs. Denies recent fever, chills, chest pain, breath, abdominal pain, nausea/vomiting, dysuria/hematuria, diarrhea, melena, and lower extremity swelling. He is willing to stay overnight for ongoing IV fluids and monitoring of his electrolytes. EKG obtained from the patient's physical chart shows normal sinus rhythm without significant ST segment or T wave changes. Please refer to Dr. Bustos's attestation for any changes to treatment plan Principal Diagnosis acute renal failure Discharge Exam General: In no acute distress, stated age, non-toxic appearing HEENT: Normocephalic, atraumatic Chest/Pulm: No respiratory distress, symmetrical chest expansion, clear breath sounds throughout Cardiac: RRR, no murmurs noted Abdomen: normoactive bowel sounds, soft, non-tender to palpation throughout Musculoskeletal: Symmetrical and without signs of acute trauma, upper and lower extremities with full ROM, no atrophy, spasticity, or flaccidity Extremities: Radial, dorsalis pedis, and posterior tibial pulses are intact and symmetrical, no edema noted in the BL LE's Psych: No acute distress, calm and cooperative during the exam Discharge Data Allergies Allergy/AdvReac Type Severity Reaction Status Date / Time No Known Allergies Allergy Verified 07/21/23 09:58 Consultations 05/20/24 19:02 ED Decision to Admit Stat Ordered Studies 05/20/24 16:41 CT abd pelvis wo con Stat Hospital Course (1) Acute renal failure: Admit to med/tele Currently stable nontoxic-appearing Presented to the ED at the recommendation of his PCP patient labs showed patient to be in renal failure with hyperkalemia Creatinine on 05/19/2024 was 3.72, potassium was 5.8 Creatinine today improving to 2.88, potassium on arrival was 5.7 No acute ECG changes Renal failure is likely a combination of Ozempic use, dehydration, and continued use of lisinopril and metformin Creatinine and hyperkalemia improved to 1.6 and 4.9 respectively with IV fluids. WIll resume metformin, hold lisinopril for now. However his can likely be resumed within the week. In regards o ozempic, we could consider resuming but wih closer monitoring of renal funcion and a a lower dose. Will defer to PCP (2) Hyperkalemia: See acute renal failure plan (3) Hypertension: Currently stable Continue to hold lisinopril for now If he is hypertensive during admission will have to start him on potassium sparing antihypertensive at the time of discharge (4) Type 2 diabetes mellitus with peripheral neuropathy: Hold metformin and Ozempic -will resume metformin as stated above (5) Dyslipidemia: Continue statin Total Time Total Time Spent Total Time Spent (In Minutes): 32 Discharge Plan Discharge Items Patient Disposition: Home - Self-Care Reason For Visit: ACUTE RENAL FAILURE, HYPERKALEMIA Discharge Diagnosis: acute renal failure Activity: Resume your previous activity Non-emergency contact: Primary Care Provider Call non-emergency contact if: you have any medication questions Follow-up/Referrals: Rodriguez,Caio P., DO [Primary Care Provider] - 06/09/24 1:00 pm Diet: Carb Consistent or DM2 Ambulatory Orders: Basic Metabolic Panel (Routine) Timeframe: 20240526 Location: Determined by Patient Ordered By: Freddy Graves Magnesium (Routine) Timeframe: 20240526 Location: Determined by Patient Ordered By: Freddy Quinones Attending Provider Instructions: Recommend close followup with PCP in 1-2 weeks. Recommend rechecking your kidney numbers midweek. Recommend resuming lisinopril after your blood-work results show continued improvement of your kidney function. You may resume metformin now. Hold ozempic until you discuss it further with your PCP. Ok to resume atorvastatin. It was a pleasure. Pending Studies at Discharge: No Stand-Alone Forms: My [email or web address], Smoking Cessation Medications and DC Order Prescriptions: New magnesium oxide 500 mg magnesium tablet 500 mg PO DAILY Qty: 5 0RF Continued (DME) blood-glucose meter [OneTouch Verio Meter] Misc See Rx Instructions .ROUTE .MEDSUPPLY Qty: 1 0RF Rx Instructions: As directed to check blood sugar daily before meal (DME) OneTouch Verio test strips Strip See Rx Instructions .ROUTE .MEDSUPPLY Qty: 50 3RF Rx Instructions: As directed to check blood sugar daily before meal or as directed (DME) lancets [OneTouch Delica Lancets] 30 gauge misc See Rx Instructions .ROUTE .MEDSUPPLY Qty: 50 3RF Rx Instructions: As directed to test blood sugar daily before meal or as directed atorvastatin 20 mg tablet 20 mg PO HS Qty: 90 3RF metformin 500 mg tablet extended release 24 hr 1,000 mg PO BID Qty: 360 3RF Hold Instructions: acute renal failure famotidine 10 mg/mL Solution HS PRN (Reason: Abdominal Discomfort) Held lisinopril 20 mg tablet 20 mg PO DAILY Qty: 90 3RF Hold Instructions: acute renal failure Ozempic 1 mg/dose (4 mg/3 mL) pen injector 1 mg subcut Q7D Qty: 3 8RF Hold Instructions: Resume on 06/23/24. until cleared by PCP Discharge Orders: Discharge Order (Routine); Ordered 05/22/24 Ordered By: Freddy Monsalve/Other Patient Handouts: Hyperkalemia Dc, Hypomagnesemia Dc Admission Data Admit Date/Time: 05/20/24 19:05 Attending Provider: Freddy Graves Admit Provider: David Bustos Primary Care Provider: Caio Rodriguez Other Providers: David Bustos Other Interventions: Discharge Summary Assessment (RN) Last Done: 05/22/24 10:46 Coding Level of Care Code 91050 INP/OBS DISCH >30 MIN Diagnoses Acute renal failure N17.9 Acute renal failure type: unspecified Hyperkalemia E87.5 Hypertension I10 Type 2 diabetes mellitus with peripheral neuropathy E11.42 Dyslipidemia E78.5
--- NOTE | 2024-05-22 11:55 | Electrocardiogram Report ---
Test Reason : Blood Pressure : / mmHG Vent. Rate : 064 BPM Atrial Rate : 064 BPM P-R Int : 166 ms QRS Dur : 090 ms QT Int : 358 ms P-R-T Axes : 058 054 066 degrees QTc Int : 369 ms Poor data quality, interpretation may be adversely affected Normal sinus rhythm Normal ECG When compared with ECG of 20-MAY-2024 16:15, No significant change was found Confirmed by Paul Guido ([id number]) on 05/22/2024 11:55:16 AM Referred By: Caio Rodriguez Confirmed By:Paul Guido
== END 2024-05-22 11:38 | disposition home or self-care (01) | DRG 684 ==
LOC: ED 15:48 → 2N 19:05 → SUATTDRO 19:05 → 2N 21:41